=== PATIENT | female | born 1970 | race Caucasian/White ===

== ENCOUNTER → 2018-06-08 15:19 | Outpatient (CLI) | payer SELFPAY ==
--- NOTE | 2018-06-08 15:23 | MR_ITS ---
MR lumbar spine wo con, MR 3-d myelogram/MRCP HISTORY: Low back pain ITS.REASON: LUMBOSACRAL STRAIN ORDERING PHYSICIAN: Michael Romero PATIENT AGE: 48 years Comparison: None TECHNIQUE: Standard multiplanar multiecho sequences are performed without contrast. 3-D MIP and myelographic images are also rendered and reviewed FINDINGS: There is normal alignment. The spinal cord ends at the L1-L2 level. 311 T12, T12-L1, L1-L2, L2-L3, and L3-L4 have an unremarkable appearance. L4-5: There is a small annular fissure within a small central/left paracentral disc protrusion without impingement causing some mild left lateral recess narrowing. L5-S1: Mild bulging disc. No canal stenosis or extruded herniated disc is evident. IMPRESSION: 1. Small left paracentral disc protrusion at L4-L5. 2. Minimal bulging disc at L5-S1
== END ==
PROVIDERS: PCP Internal Medicine; Visit Provider Internal Medicine
DX: S39.012A Strain of muscle, fascia and tendon of lower back, initial encounter (principal)
CPT/HCPCS: 72148; 76376

== ENCOUNTER → 2018-08-17 14:18 | Outpatient (CLI) | payer SELFPAY ==
[2018-08-21 11:11] LABS: Neisseria gonorrhoeae, NAA Negative (Negative)
== END ==
PROVIDERS: Visit Provider Nurse Practitioner Obstetrics & Gynecology
DX: Z72.51 High risk heterosexual behavior (principal)
CPT/HCPCS: 87491; 87591

== ENCOUNTER → 2018-09-26 11:41 | Outpatient (CLI) | payer SELFPAY ==
--- NOTE | 2018-09-26 11:48 | XR_ITS ---
XR knee RT 3V HISTORY: ITS.REASON: RT KNEE PAIN ORDERING PHYSICIAN: Michael Romero PATIENT AGE: 48 years COMPARISON: 11/04/2008 FINDINGS: No fracture or dislocation. No lytic or blastic change. Normal mineralization. There are minimal osteoarthritic changes of the medial compartment. IMPRESSION: Minimal osteoarthritis of the medial compartment otherwise negative
== END ==
PROVIDERS: PCP Internal Medicine; Visit Provider Internal Medicine
DX: M25.561 Pain in right knee (principal)
CPT/HCPCS: 73562

== ENCOUNTER 2020-02-13 14:00 | Emergency (ER) | payer MEDICAID, SELFPAY ==
[2020-02-13 14:01] VITALS: BP 151/76; PULSE 73; RESP 18; TEMP 37.1; O2SAT 100; BMI 26.1
--- NOTE | 2020-02-13 14:18 | HMH.EDBACK ---
ED Disposition Clinical Impression: Lumbar pain Disposition: Home, Self-Care Condition on Discharge: Fair Instructions: DI for Low Back Pain Additional Instructions: Return to the emergency department for a loss of bowel or bladder control, worsening of symptoms, fever, motor or sensory changes in one or both of your legs, any other acute new concerns. Referrals: Siddhartha Kincaid [Referring] - 3 days - Critical Care Critical Care Time: No Attestation: On , the high probability of a clinically significant, sudden or life threatening deterioration of the following system(s) required my full and direct attention, intervention and personal management. The time I documented below is in addition to time spent performing reported procedures but includes the following listed in this critical care notation. Medical Decision Making - Medical Records Medical records reviewed: Yes: I reviewed the patient's medical records. - Sy Inquiry Pt receiving controlled substance: Yes Sy was queried for this patient: No Risks and benefits of using a controlled substance: were discussed with pt by me Vital Signs: 02/13/20 14:01 02/13/20 14:31 02/13/20 16:19 Temperature 98.7 F Temperature Source Oral Pulse Rate [Left Radial] 73 78 72 Respiratory Rate 18 18 20 Blood Pressure [Right Arm] 151/76 H 136/82 128/92 H Blood Pressure Mean [Right Arm] 101 100 104 Blood Pressure Source [Right Arm] Automatic Cuff Automatic Cuff Automatic Cuff Blood Pressure Position [Right Arm] Sitting Supine Sitting 02 Sat by Pulse Oximetry 100 100 100 Oxygen Delivery Method Room Air Room Air Orders (Tests/Meds): ED MEDICATIONS Discontinued Medications Generic Name Dose Route Start Last Admin Trade Name Moon PRN Reason Stop Dose Admin Diazepam 5 mg 02/13/20 14:18 02/13/20 15:23 Diazepam 5mg Tablet PO 02/13/20 14:19 5 mg ONCE ONE Administration Ketorolac Tromethamine 60 mg 02/13/20 14:18 02/13/20 15:23 Ketorolac 60mg/2ml Vial IM 02/13/20 14:19 60 mg ONCE ONE Administration Oxycodone/Acetaminophen 1 each 02/13/20 15:45 02/13/20 15:58 Oxycodone 10mg W/Apap 325mg Tablet PO 02/13/20 15:46 1 each ONCE ONE Administration Medical Decision Narrative: Patient with back pain, no neurovascular symptoms distally. She does not exhibit symptomology consistent with cauda equina. No blunt trauma that would prompt imaging. She experienced little relief of symptoms with Valium and Toradol, was given Percocet with slight improvement of pain. I have offered transport to follow-up with neurosurgery/Dr. Kincaid in [place] at [facility], but patient has declined and wants to go home. She will call their office tomorrow and follow-up outpatient. We discussed return precautions and patient was discharged home. Back Pain HPI - General Stated Complaint: AO [id number] back pain Time Seen by Provider: 02/13/20 14:18 Mode of Arrival: Wheelchair Source of Information: Patient Limitations: No Limitations - History of Present Illness HPI Narrative: This is a 49-year-old female who presents to the emergency department for back pain that started just prior to arrival. She has a known history of some slipped disks in her lower back and has had problems like this before where she has acute pain in her lower back that is worse with movement. She does not have any urinary symptoms and has otherwise been well. No loss of bowel or bladder control. 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 No radiation of the pain. No motor or sensory changes in her lower extremities. Any sort of movement makes the pain worse. She has seen Dr. Kincaid's office in [place] for these problems in the past with recommendation of no surgery until she develops a radiculopathy. - Related Data Previous Rx's Medication Instructions Recorded fluconazole 100 mg tablet
[2020-02-13 14:31] VITALS: BP 136/82; PULSE 78; RESP 18; O2SAT 100
[2020-02-13 16:19] VITALS: BP 128/92; PULSE 72; RESP 20; O2SAT 100
[2020-02-13 17:23] VITALS: BP 130/89; PULSE 86; RESP 20; TEMP 37.1; O2SAT 97
== END 2020-02-13 17:25 | disposition home or self-care (01) ==
PROVIDERS: Emergency Provider Emergency Medicine; PCP Internal Medicine
DX: M54.5 Low back pain (principal); K21.9 Gastro-esophageal reflux disease without esophagitis; M79.7 Fibromyalgia; Z90.710 Acquired absence of both cervix and uterus
CPT/HCPCS: 96372; 99282

== ENCOUNTER → 2022-08-19 10:45 | Outpatient (CLI) | payer SELFPAY ==
--- NOTE | 2022-08-19 10:51 | XR_ITS ---
FINAL REPORT CLINICAL HISTORY: rt knee pain FINDINGS: RIGHT KNEE SERIES Three views of the right knee were obtained. There is no acute fracture or dislocation. There is mild to moderate medial compartment joint space narrowing, which is likely due to osteoarthritis. There is no soft tissue abnormality. IMPRESSION: Osteoarthritis of the medial compartment. Reviewed, Interpreted and Dictated by Henrry Coronado MD Transcribed by Sharath Zuleta Authenticated and [facility]
== END ==
PROVIDERS: PCP Internal Medicine; Visit Provider Orthopaedic Surgery
DX: M25.561 Pain in right knee (principal)
CPT/HCPCS: 73562

== ENCOUNTER 2022-08-19 14:03 | Outpatient (RCR) | payer SELFPAY | END 2022-08-19 15:10 | disposition home or self-care (01) | LOC: PT 14:03 | PROVIDERS: Visit Provider Orthopaedic Surgery | DX: M25.561 Pain in right knee (principal) | CPT/HCPCS: 97760 ==

== ENCOUNTER → 2022-10-04 10:26 | Outpatient (CLI) | payer SELFPAY ==
--- NOTE | 2022-10-04 10:34 | ECG_ITS ---
APPROVED REPORT Exam: Resting ECG HR:70 bpm ECG Measurements Heart Rate 70 AXES AL 169 P 31 QRSd 94 QRS 64 QT 392 T 64 QTc 412 Conclusion SINUS RHYTHM LOW QRS VOLTAGE IN PRECORDIAL LEADS [QRS DEFLECTION < 1.0 mV IN CHEST LEADS] OTHERWISE A NORMAL ECG Electronically signed by : Michael Romero MD 10/07/2022 12:06:25
== END ==
PROVIDERS: PCP Internal Medicine; Visit Provider Internal Medicine
DX: Z01.810 Encounter for preprocedural cardiovascular examination (principal)
CPT/HCPCS: 93005

== ENCOUNTER → 2022-10-04 13:02 | Outpatient (CLI) | payer SELFPAY ==
[2022-10-04 14:56] LABS: Basophils # 0.1 K/mm3 (0-0.2); Basophils % 0.9 % (0.1-2.0); Eosinophils # 0.4 K/mm3 (0.0-0.4); Eosinophils % 5.7 % (0.1-12.0); Hematocrit 43.1 % (37.0-47.0); Hemoglobin 13.6 g/dL (12.2-16.2); Lymphocytes # 1.7 K/mm3 (0.7-4.5); Lymphocytes % 22.2 % (10-50); Mean Corpuscular HGB Conc 31.6 g/dL (31.8-35.4); Mean Corpuscular Volume 94.7 fl (81-99); Mean Platelet Volume 10.1 fl (7.4-10.4); Monocytes # 0.5 K/mm3 (0.1-1.0); Monocytes % 5.9 % (1.7-9.3); Neutrophils # 4.9 K/mm3 (1.8-7.8); Neutrophils % 65.3 % (37.0-80.0); Platelet Count 247 K/mm3 (142-424); Red Blood Count 4.55 M/mm3 (4.20-5.40); Red Cell Distribution Width 13.7 % (11.5-17.5); White Blood Count 7.6 K/mm3 (4.8-10.8)
[2022-10-04 16:47] LABS: Anion Gap 14.6 mEq/L (5-15); Blood Urea Nitrogen 10 mg/dl (7-17); Calcium 9.3 mg/dl (8.4-10.2); Carbon Dioxide 28 mmol/L (22.0-30.0); Chloride 103 mmol/L (98-107); Estimated Glomerular Filt Rate 88 ml/min (>60); GFR (African American) 106 ML/MIN (>60); Glucose 82 mg/dl (74-100); Potassium 4.6 mmoL/L (3.5-5.1); Sodium 141 mmol/L (136-145)
== END ==
PROVIDERS: PCP Internal Medicine; Visit Provider Internal Medicine
DX: Z01.818 Encounter for other preprocedural examination (principal); M17.11 Unilateral primary osteoarthritis, right knee
CPT/HCPCS: 80048; 83036; 85025

== ENCOUNTER 2022-10-21 14:00 | Outpatient (RCR) | payer SELFPAY ==
--- NOTE | 2022-10-14 11:23 | HMH.PTOPEV ---
PT Outpatient Evaluation Rehab PT Outpatient Evaluation Start: 10/14/22 08:07 Freq: Status: Active Protocol: Document 10/14/22 08:08 RALEIGH (Rec: 10/14/22 11:23 RALEIGH [id number]) E-signed By Lety Vargas, PT Outpatient Therapy Subjective History Subjective History Pt presents to the PT clinic s /p R TKA on 10/11/[address] Bertrand. Pt reports she was having difficulty walking, going up/down stairs and squatting. Pt reports she was pain and difficutly for ~ 2 months prior to having surgery . Pt reports Dr. Bertrand gave her 4-5 exercises to do at home and reports compliance with them at home. Pt reports that she has been sleeping on the couch since surgery because her bed is too far away. Pt reports that she is currently needing assistance to shower with a tub transfer bench. Pt reports that she has been staying with her daughter at home to assist with B/IADL's. Pt reports she is currently taking oxycodone and meloxicam for pain. Pt reports she has been using the game ready device at home for pain. PMH: migraines, fibromyalgia BP 124/82mmHg Educated pt on s/s of infection. Pt stated that she has been feeling lightheaded since surgery, educated pt to follow-up with Dr. Bertrand to address concerns. Chief Complaint Pain,Stiff,Swelling,Weakness Symptom Type Ache,Throb,Sharp,Burning Symptoms Relieved By Rest/Positioning,Ice, Prescription Meds,Elevation Symptoms Aggravated By Prone,Supine,Sitting,Standing, Bending/Stooping,Physical Activity,Twisting,Walking, Lifting Prior Functional Limitations Lifting,Housework,Standing, Sitting,Squatting,Recreation Activity,Stairs,Bending/ Stooping Current Functional Schmitt
== END 2022-10-21 14:05 | disposition home or self-care (01) ==
LOC: PT 14:00
PROVIDERS: Visit Provider Orthopaedic Surgery
DX: M25.561 Pain in right knee (principal); Z96.651 Presence of right artificial knee joint
CPT/HCPCS: 97163

== ENCOUNTER 2023-06-21 11:07 | Outpatient (CLI) | payer SELFPAY ==
--- NOTE | 2023-06-21 11:11 | XR_ITS ---
FINAL REPORT CLINICAL HISTORY: CHRONIC COUGH, 1 yr, c/o cp 2 days ago non smoker COMPARISON: None FINDINGS: The cardiac silhouette is normal. The mediastinal and hilar structures are unremarkable. The lungs are clear. There is no pneumothorax. IMPRESSION: No acute process. Reviewed, Interpreted and Dictated by Henrry Coronado MD Transcribed by HOSSEIN Pardo Authenticated and . [facility]
== END 2023-06-21 23:59 | disposition home or self-care (01) ==
LOC: RAD 11:08
PROVIDERS: PCP Internal Medicine; Visit Provider Internal Medicine
DX: R05.3 Chronic cough (principal)
CPT/HCPCS: 71046

== ENCOUNTER 2023-06-26 21:17 | Emergency (ER) | payer SELFPAY ==
[2023-06-26 21:19] VITALS: BP 152/78; PULSE 83; RESP 16; TEMP 37.2; O2SAT 100; BMI 27.9
[2023-06-26 21:28] VITALS: BMI 27.9
[2023-06-26 21:33] LABS: Coronavirus 19, PCR Not Detected (NotDetected); Influenza A, PCR Not Detected (NotDetected); Influenza B, PCR Not Detected (NotDetected)
[2023-06-26 22:11] LABS: Strep Scrn Group A (Rapid) Negative (Negative)
--- NOTE | 2023-06-26 22:14 | XR_ITS ---
PROCEDURE INFORMATION: Exam: XR Chest Exam date and time: 06/26/2023 10:15 PM Age: 53 years old Clinical indication: Other: Congestion TECHNIQUE: Imaging protocol: Radiologic exam of the chest. Views: 2 views. COMPARISON: CR XR CHEST 2V 06/21/2023 11:24 AM FINDINGS: Lungs: Right upper lung ground-glass opacity. Pleural spaces: Normal. No pleural effusion. No pneumothorax. Heart/Mediastinum: Normal. No cardiomegaly. Bones/joints: Unremarkable. IMPRESSION: Right upper lung ground-glass opacity is suspicious for pneumonia.
--- NOTE | 2023-06-26 22:19 | PC.NURSE ---
patient given blanket and drink
--- NOTE | 2023-06-26 22:45 | ED_ITS ---
Discharge Plan Disposition Patient Disposition: Home, Self-Care Condition: Good Prescriptions Prescriptions: New pantoprazole [Protonix] 40 mg tablet,delayed release (DR/EC) 40 mg PO BID 14 Days Qty: 28 0RF prednisone 50 mg tablet 50 mg PO DAILY 5 Days Qty: 5 0RF No Action esomeprazole magnesium [Nexium] 20 mg capsule,delayed release(DR/EC) 20 mg PO DAILY Referrals Follow up/Referrals: Michael Romero MD [Primary Care Provider] - See instructions Carolina Gates MD [Physician] - See instructions Activity Restrictions/Add. Instructions Additional Instructions/Restrictions: Follow-up closely with your PCP. Return to the ER as needed for any worsening signs or symptoms as needed. Clinical Impressions Clinical Impression: Chronic cough Discharge ED Provider: Rod Fairchild Adult HPI <HOSSEIN Brannon - Last Filed: 06/26/23 23:11> General Chief complaint: Upper Respiratory Infection Stated complaint: Cough,ALBERT,body aches Time Seen by Provider: 06/26/23 22:45 Mode of Arrival: Ambulatory Source of Information: Patient Limitations: No Limitations Description of Symptoms (Recalled from ER Triage Doc. by RN): pt c/o cough, congestion,fever,body aches sonce the . pt was diagnosed bronchitis and started on amoxicillin History of Present Illness HPI narrative: Patient presents with a 2-month history of persistent pervasive cough. She has had some workup ordered by her PCP but has yet to see a product merchandiser. Patient reports that she has had worsening over the last 48 hours have difficulty sleeping because the cough is so pervasive. He denies chest pain fever chills hemoptysis hematochezia melena nausea vomit diarrhea. Patient is a non-smoker. There is no precipitating illness prior to the cough presenting. Related Data Home Medications Medication Instructions Recorded Confirmed esomeprazole magnesium 20 mg 20 mg PO DAILY 08/19/22 06/14/23 capsule,delayed release (Nexium) Previous Rx's Medication Instructions Recorded pantoprazole 40 mg tablet,delayed 40 mg PO BID 14 days #28 tabs 06/26/23 release (Protonix) prednisone 50 mg tablet 50 mg PO DAILY 5 days #5 tabs 06/26/23 Allergies Allergy/AdvReac Type Severity Reaction Status Date / Time No Known Allergies Allergy Verified 06/14/23 09:38 PFS <HOSSEIN Brannon - Last Filed: 06/26/23 23:11> [facility] Disclaimer: The information contained in this section may have been updated after the patient was seen, as this information can be updated by other users. Medical History (Updated 06/26/23 @ 22:56 by HOSSEIN Brannon) Menopausal symptoms Fibromyalgia Depression Surgical History (Updated 06/14/23 @ 09:47 by Bibiana Yarbrough) Hx of right knee surgery H/O arthroscopy of hip H/O tubal ligation H/O total hysterectomy Family History (Updated 06/14/23 @ 09:47 by Bibiana Yarbrough) Grandmother Cancer Mother Cancer Social History Smoking Status: Never smoker alcohol intake: never substance use type: denies use current occupational status: employed Travel in the last 8 weeks: None household members: family housing: house <HOSSEIN Brannon - Last Filed: 06/26/23 23:11> ROS Obtained: Yes Systems reviewed as appropriate & no additional complaints except as documented Physical Exam <HOSSEIN Brannon - Last Filed: 06/26/23 23:11> General General appearance: alert and in no apparent distress Head Head exam: atraumatic and normal inspection Eye Eye exam: Present normal appearance, PERRL and EOMI ENT ENT exam: Present normal exam, normal oropharynx and mucous membranes moist Neck Neck exam: Present normal inspection, full ROM and trachea midline; Absent lymphadenopathy Chest Chest inspection: Present normal inspection and symmetric chest wall rise Respiratory Respiratory exam: Present normal lung sounds bilaterally; Absent accessory muscle use Cardiovascular Cardiovascular exam: Present regular rate, normal rhythm, normal heart sounds, +S1 and +S2 Abdominal Exam Abdominal exam: Present soft and normal bowel sounds; Absent tenderness, guarding or rebound Extremities Exam Extremities exam: Present normal inspection and full ROM Neurological Exam Neurological exam: Present alert, oriented X3 and CN II-XII intact Psychiatric Psychiatric exam: Present normal affect and normal mood Skin Skin exam: Present warm, dry and normal color Lymphatic Lymphatic Findings: no adenopathy Medical Decision Making <HOSSEIN Brannon - Last Filed: 06/26/23 23:11> Medical Records Medical records reviewed: Yes I reviewed the patient's medical records. Sy Inquiry Pt receiving controlled substance: No Vital Signs: 06/26/23 21:19 06/26/23 23:17 Temperature 98.9 F 98.0 F Temperature Source Oral Pulse Rate 85 Pulse Rate [Right] 83 Respiratory Rate 16 20 Blood Pressure 140/87 Blood Pressure [Right Arm] 152/78 H Blood Pressure Mean [Right Arm] 102 02 Sat by Pulse Oximetry 100 Oxygen Delivery Method Room Air Lab Data Lab Results 06/26/23 21:25: SARS-CoV-2 (PCR) Not detected, Influenza A Untype (PCR) Not detected, Influenza Type B (PCR) Not detected, Group A Strep Rapid Negative Orders (Tests/Meds): ED MEDICATIONS Discontinued Medications Generic Name Dose Route Start Last Admin Trade Name Freq PRN Reason Stop Dose Admin Promethazine HCl/Codeine 5 ml 06/26/23 23:14 06/26/23 23:15 Promethazine W/Codeine 6.25mg/10mg 5ml Udc PO 06/26/23 23:15 5 ml ONCE ONE Administration Promethazine/Phenylephrine/Codeine 5 ml 06/26/23 23:06 06/26/23 23:17 Promethazine Vc W/Codeine 5ml Udc PO 06/26/23 23:07 Not Given ONCE ONE ORDERS Category Date Time Status Chest XR 2 view (NOT portable) [XR chest 2V] Stat Exams 06/26/23 22:14 Completed Rapid PCR Covid and Flu A/B Stat Lab 06/26/23 21:25 Completed Rapid Strep Scrn Group A [Strep Scrn Group A (Rapid)] Lab 06/26/23 21:25 Completed Stat Strep Screen Confirmation Stat Micro 06/26/23 21:25 Received Medical Decision Narrative: In summary patient is a 53-year-old female who presents to the emergency department for evaluation of 2-month history of cough. Patient is hemodynamically stable upon arrival, afebrile. Zickel exam is remarkable for a persistent interruptive dry nonproductive cough present on exam. However her breath sounds are clear and equal bilaterally to the bases without adventitious sounds of any kind.. Differential diagnosis includes gastroesophageal reflux disease versus bronchiolitis versus asthma versus COPD versus interstitial lung disease versus bacterial viral infection etc. Initial workup will be conducted with plain film chest x-ray labs and swabs. Initial interventions include antitussives. Initial workup reviewed by me shows that her hematologic labs are nonactionable, her swabs are negative, and her plain film chest x-ray shows no acute disease per my informal interpretation.. Upon repeat evaluation her active discussion with the workup that might be required for the patient given the 2-month history of her cough and the nonacute nature. Patient verbalized understanding.. Given this patient is appropriate for discharge with a prescription for p.o. steroids and a proton pump inhibitor. I have referred her to pulmonology. <Rod Fairchild, DO - Last Filed: 06/27/23 00:14> Vital Signs: 06/26/23 21:19 06/26/23 23:17 Temperature 98.9 F 98.0 F Temperature Source Oral Pulse Rate 85 Pulse Rate [Right] 83 Respiratory Rate 16 20 Blood Pressure 140/87 Blood Pressure [Right Arm] 152/78 H Blood Pressure Mean [Right Arm] 102 02 Sat by Pulse Oximetry 100 Oxygen Delivery Method Room Air Lab Data Lab Results 06/26/23 21:25: SARS-CoV-2 (PCR) Not detected, Influenza A Untype (PCR) Not detected, Influenza Type B (PCR) Not detected, Group A Strep Rapid Negative Orders (Tests/Meds): ED MEDICATIONS Discontinued Medications Generic Name Dose Route Start Last Admin Trade Name Moon PRN Reason Stop Dose Admin Promethazine HCl/Codeine 5 ml 06/26/23 23:14 06/26/23 23:15 Promethazine W/Codeine 6.25mg/10mg 5ml Udc PO 06/26/23 23:15 5 ml ONCE ONE Administration Promethazine/Phenylephrine/Codeine 5 ml 06/26/23 23:06 06/26/23 23:17 Promethazine Vc W/Codeine 5ml Udc PO 06/26/23 23:07 Not Given ONCE ONE ORDERS Category Date Time Status Chest XR 2 view (NOT portable) [XR chest 2V] Stat Exams 06/26/23 22:14 Completed Rapid PCR Covid and Flu A/B Stat Lab 06/26/23 21:25 Completed Rapid Strep Scrn Group A [Strep Scrn Group A (Rapid)] Lab 06/26/23 21:25 Completed Stat Strep Screen Confirmation Stat Micro 06/26/23 21:25 Received Medical Decision Narrative: In summary patient is a 53-year-old female who presents to the emergency department for evaluation of 2-month history of cough. Patient is hemodynamically stable upon arrival, afebrile. Zickel exam is remarkable for a persistent interruptive dry nonproductive cough present on exam. However her breath sounds are clear and equal bilaterally to the bases without adventitious sounds of any kind.. Differential diagnosis includes gastroesophageal reflux disease versus bronchiolitis versus asthma versus COPD versus interstitial lung disease versus bacterial viral infection etc. Initial workup will be conducted with plain film chest x-ray labs and swabs. Initial interventions include antitussives. Initial workup reviewed by me shows that her hematologic labs are nonactionable, her swabs are negative, and her plain film chest x-ray shows no acute disease per my informal interpretation.. Upon repeat evaluation her active discussion with the workup that might be required for the patient given the 2-month history of her cough and the nonacute nature. Patient verbalized understanding.. Given this patient is appropriate for discharge with a prescription for p.o. steroids and a proton pump inhibitor. I have referred her to pulmonology. I was consulted by the JAKE, and we discussed the complexity of the problems being addressed. I approved the treatment and management plan for this patient's care in the Emergency Department, thus performing a substantive portion of the medical decision making. Rod Fairchild, DO Critical Care <HOSSEIN Brannon - Last Filed: 06/26/23 23:11> Critical Care Time Critical Care Time: No
[2023-06-26] MEDS: PROMETHAZINE W/CODEINE 6.25MG/10MG 5ML UDC 5 ML PO (23:15)
[2023-06-26 23:17] VITALS: BP 140/87; PULSE 85; RESP 20; TEMP 36.7; O2SAT 99
== END 2023-06-26 23:19 | disposition home or self-care (01) ==
PROVIDERS: Emergency Provider Emergency Medicine; PCP Internal Medicine
DX: R05.3 Chronic cough (principal)
CPT/HCPCS: 71046; 87430; 87636; 99283

== ENCOUNTER 2024-07-11 16:31 | Observation (INO) | payer SELFPAY ==
[2024-07-11 16:34] VITALS: BP 133/76; PULSE 71; RESP 18; TEMP 36.8; O2SAT 100; BMI 26.4
[2024-07-11 17:07] LABS: Basophils % 0.5 % (0.1-2.0); Eosinophils # 0.3 Kmm3 (0.0-0.4); Hematocrit 39.9 % (37.0-47.0); Hemoglobin 13.2 g/dL (12.2-16.2); Immature Granulocytes # 0.02 10^3uL; Immature Granulocytes % 0.3 %; Lymphocytes # 2.3 K/mm3 (0.7-4.5); Mean Corpuscular HGB Conc 33.1 g/dL (31.8-35.4); Mean Corpuscular Hemoglobin 30.3 pg (27.0-31.2); Mean Corpuscular Volume 91.7 fl (81-99); Monocytes # 0.6 K/mm3 (0.1-1.0); Monocytes % 7.8 % (1.7-9.3); Neutrophils # 4.7 K/mm3 (1.8-7.8); Neutrophils % 58.4 % (37.0-80.0); Nucleated Red Blood Cells # 0 10^3/uL; Nucleated Red Blood Cells % 0 %; Platelet Count 249 K/mm3 (142-424); Red Blood Count 4.35 M/mm3 (4.20-5.40); Red Cell Distribution Width 13.2 % (11.5-17.5); Red Cell Distribution Width-SD 43.9 fL
[2024-07-11 17:27] VITALS: BP 120/70; PULSE 66; O2SAT 99
--- NOTE | 2024-07-11 17:27 | CT_ITS ---
PROCEDURE INFORMATION: Exam: CT Abdomen And Pelvis With Contrast Exam date and time: 07/11/2024 5:44 PM Age: 54 years old Clinical indication: Abdominal pain; PT states sent from pcp for possible appendicitis; Additional info: Upper abd pain TECHNIQUE: Imaging protocol: Computed tomography of the abdomen and pelvis with contrast. Radiation optimization: All CT scans at this facility use at least one of these dose optimization techniques: automated exposure control; mA and/or kV adjustment per patient size (includes targeted exams where dose is matched to clinical indication); or iterative reconstruction. Contrast material: ISOVUE; Contrast volume: 75 ml; Contrast route: IV; COMPARISON: MR - SPLUMBWO MR lumbar spine wo con 06/08/2018 3:41 PM FINDINGS: Lungs: Visualized lung bases are clear. Heart: Heart size normal. Esophagus: The visualized distal esophagus is largely contracted without gross abnormality. Diaphragm: Small fatty hernia at the esophageal diaphragmatic hiatus. No features of strangulation. Liver: Normal contour. No mass lesions. Slight intrahepatic biliary ductal dilatation. Gallbladder and biliary ducts: Gallbladder is unremarkable. Dilated common hepatic duct and common bile duct, with common bile duct measuring 9.5 mm diameter. No calcified duct stones or obstructive mass lesions are evident by CT. Clinical/laboratory correlation recommended regarding evidence of biliary obstruction. Consider sonographic assessment as clinically indicated. Pancreas: Normal. No inflammatory changes or ductal dilation. Spleen: Granulomatous calcification in the spleen. Spleen is otherwise unremarkable. Adrenal glands: Normal. No adrenal mass. Kidneys and ureters: No acute abnormalities. No hydronephrosis or hydroureter. No urinary tract stones are identified. Stomach and bowel: The stomach is largely contracted. The small bowel is nondilated with no gross abnormality. Mild colonic diverticulosis, mostly proximal in distribution, with an inflamed thick-walled diverticulum along the posterior wall of the proximal transverse colon consistent with acute diverticulitis. No perforation or abscess. Appendix: The appendix is normal in caliber and demonstrates no evidence of appendicitis. Intraperitoneal space: No peritoneal free fluid or air. Vasculature: No acute vascular abnormalities. Lymph nodes: No adenopathy. Urinary bladder: Unremarkable as visualized. Reproductive: Prior hysterectomy. Bones/joints: No acute osseous abnormalities. Mild thoracolumbar spondylosis. Soft tissues: No acute soft tissue abnormalities. Very small fatty umbilical hernia . No evidence of associated bowel herniation or strangulation. IMPRESSION: 1. Acute diverticulitis in the proximal transverse colon with no evidence of perforation or abscess. 2. Dilated extrahepatic bile ducts with common bile duct measuring 9.5 mm diameter. Clinical/laboratory correlation recommended regarding evidence of biliary obstruction. Consider sonographic assessment as clinically indicated. 3. Additional nonemergent findings detailed above.
[2024-07-11 17:31] LABS: Alanine Aminotransferase 26 U/L (12-78); Albumin Level 4.4 g/dl (3.5-5.0); Albumin/Globulin Ratio 1.7 (1.1-1.8); Alkaline Phosphatase 76 U/L (38-126); Anion Gap 9.6 mEq/L (5-15); Aspartate Amino Transferase 30 U/L (14-36); Bilirubin,Total 0.7 mg/dl (0.2-1.3); Blood Urea Nitrogen 11 mg/dl (7-17); Calcium 9.2 mg/dl (8.4-10.2); Carbon Dioxide 26 mmol/L (22.0-30.0); Chloride 105 mmol/L (98-107); Creatinine Clearance Estimated 108 mL/min (50-200); Estimated Glomerular Filt Rate 87 ml/min (>60); GFR (African American) 106 ML/MIN (>60); Globulin 2.6 g/dL (1.3-3.2); Glucose 114 mg/dl (74-100); Lipase 84 U/L (23-300); Potassium 3.6 mmoL/L (3.5-5.1); Sodium 137 mmol/L (136-145)
--- NOTE | 2024-07-11 17:32 | ED_ITS ---
Discharge Plan Disposition Patient Disposition: Admitted Condition: Good Clinical Impressions Clinical Impression: Diverticulitis large intestine, Intractable abdominal pain Discharge ED Provider: Bianca Pop General Adult HPI General Chief complaint: Abdominal Pain Stated complaint: sent by Doctor Nickabdominal pain Time Seen by Provider: 07/11/24 16:51 Mode of Arrival: Ambulatory Source of Information: Patient Description of Symptoms (Recalled from ER Triage Doc. by RN): Pt was sent from Dr. Romero' office for evaluation of possible appendicitis. Pt states she has mid abdominal pain for several weeks but became worse yesterday. Pt states she is now having pain in the RLQ. History of Present Illness HPI narrative: This patient is a 54-year-old female with a history of fibromyalgia, depression, prior hysterectomy, prior tubal ligation, and GERD on Nexium presenting to the emergency department for evaluation concern for upper abdominal pain. Patient states she has had abdominal pain all across her upper abdomen for 2 days. She is also had nausea without any appetite, inability to tolerate oral intake. She has had no vomiting, but the nausea is severe. She denies any changes in bowel movements. She states she is having some discomfort with urination today, but she thinks that is because she is not been drinking. No fevers, chest pain, shortness of breath, cough, or other concerns. Related Data Home Medications ?Medication ?Instructions ?Recorded ?Confirmed esomeprazole magnesium 20 mg 20 mg PO DAILY 08/19/22 07/11/24 capsule,delayed release (Nexium) Previous Rx's ?Medication ?Instructions ?Recorded cyclobenzaprine 5 mg tablet 5 mg PO TID PRN muscle spasm #30 06/05/24 tabs valacyclovir 1 gram tablet 1,000 mg PO BID #60 tabs 06/05/24 (Valtrex) fluconazole 150 mg tablet 150 mg PO Q3D 2 doses #2 tabs 06/15/24 estradiol 1 mg tablet 1 mg PO DAILY #90 tabs 07/03/24 Allergies Allergy/AdvReac Type Severity Reaction Status Date / Time Opioids - Morphine Analogues AdvReac Mild vomiting Verified 07/11/24 15:56 [facility] Disclaimer: The information contained in this section may have been updated after the patient was seen, as this information can be updated by other users. Medical History Menopausal symptoms Fibromyalgia Depression Surgical History Hx of right knee surgery H/O arthroscopy of hip H/O tubal ligation H/O total hysterectomy Family History Grandmother Cancer Mother Cancer Social History Smoking Status: Never smoker alcohol intake: never substance use type: denies use current occupational status: employed Travel in the last 8 weeks?: None household members: family housing: house Have you lived/traveled outside US in past 30 days?: No Contact w/someone who lives/traveled outside US past 30 days?: No Exposure to someone with infectious disease in past 14 days?: No Do you have a fever (greater than 100.4 F or 38 C)?: No Have you tested positive for COVID-19?: No Exposed to someone with COVID-19 in past 14 days?: No Do you have a sore throat?: No Do you have a cough?: No Do you have any weakness?: No Do you have any diarrhea?: No Are you experiencing any unusual bleeding?: No Do you have any muscle aches/pain?: No Do you have any abdominal pain?: No Are you experiencing loss of taste or smell?: No Other Medical History Have you received the Flu Vaccine for this season: No Have you received the Pneumonia Vaccine: No ROS Obtained: Yes All systems reviewed & no additional complaints except as documented Physical Exam General General appearance: alert Comment: Uncomfortable appearing Head Head exam: atraumatic and normocephalic Eye Eye exam: Present normal appearance, PERRL and EOMI ENT ENT exam: Present normal exam, normal oropharynx, mucous membranes moist and normal external ear exam Neck Neck exam: Present normal inspection, full ROM and trachea midline; Absent tenderness Chest Chest inspection: Present normal inspection and symmetric chest wall rise; Absent tenderness Respiratory Respiratory exam: Present normal lung sounds bilaterally; Absent respiratory distress, wheezes, stridor or accessory muscle use Cardiovascular Cardiovascular exam: Present regular rate and normal rhythm Abdominal Exam Abdominal exam: Present distention (mild) and tenderness (epigastric); Absent guarding, rebound or rigidity Extremities Exam Extremities exam: Present normal inspection, full ROM and normal capillary refill; Absent tenderness or edema Back Exam Back exam: Present normal inspection and full ROM; Absent tenderness Neurological Exam Neurological exam: Present alert, oriented X3, CN II-XII intact and normal gait; Absent motor sensory deficit Psychiatric Psychiatric exam: Present normal affect and normal mood Skin Skin exam: Present warm and dry Medical Decision Making Medical Records Medical records reviewed: Yes I reviewed the patient's medical records. Screening: Per USPSTF and CDC recommendations, given the prevalence of disease in our region, it is our hospital?s policy to screen for HIV and viral Hepatitis for all patients aged 18 and over and those with ongoing risk factors. Sy Inquiry Pt receiving controlled substance: No Vital Signs: 07/11/24 16:34 07/11/24 17:27 07/11/24 18:00 Temperature 98.3 F Temperature Source Oral Pulse Rate 66 63 Pulse Rate [Right] 71 Respiratory Rate 18 Blood Pressure 120/70 125/73 Blood Pressure [Right Arm] 133/76 Blood Pressure Mean [Right Arm] 95 Blood Pressure Source Automatic Cuff Blood Pressure Source [Right Arm] Automatic Cuff Blood Pressure Position [Right Arm] Sitting 02 Sat by Pulse Oximetry 100 99 100 Oxygen Delivery Method Room Air Room Air Room Air 07/11/24 19:51 07/11/24 20:50 Temperature 98.3 F Temperature Source Oral Pulse Rate 52 L Pulse Rate [Right] Respiratory Rate 18 Blood Pressure 127/71 Blood Pressure [Right Arm] Blood Pressure Mean [Right Arm] Blood Pressure Source Manual Cuff/ Doppler Blood Pressure Source [Right Arm] Blood Pressure Position [Right Arm] 02 Sat by Pulse Oximetry Oxygen Delivery Method Room Air Room Air Lab Data Lab results reviewed: Yes I reviewed the patient's lab results. Lab Results 07/11/24 16:57: WBC 8.0, RBC 4.35, Hgb 13.2, Hct 39.9, MCV 91.7, MCH 30.3, MCHC 33.1, RDW 13.2, Plt Count 249, MPV 11.0 H, Neut % (Auto) 58.4, Lymph % (Auto) 29.0, [place] % (Auto) 7.8, Eos % (Auto) 4.0, Baso % (Auto) 0.5, Neut # (Auto) 4.7, Lymph # (Auto) 2.3, [place] # (Auto) 0.6, Eos # (Auto) 0.3, Baso # (Auto) 0.0, Sodium 137, Potassium 3.6, Chloride 105, Carbon Dioxide 26, Anion Gap 9.6, BUN 11, Creatinine 0.70, Estimated Creat Clear 108, Estimated GFR 87, Est GFR ( Amer) 106, Glucose 114 H, Calcium 9.2, Total Bilirubin 0.7, AST 30, ALT 26, Alkaline Phosphatase 76, Troponin I < 0.01, Total Protein 7.0, Albumin 4.4, Globulin 2.6, Albumin/Globulin Ratio 1.7, Lipase 84, Urine Color Yellow, Urine Appearance Cloudy, Urine pH 6.0, Ur Specific [place] >= 1.030, Urine Protein Negative, Urine Glucose (UA) Negative, Urine Ketones 2+, Urine Blood Trace-i, Urine Nitrate Negative, Urine Bilirubin Negative, Urine Urobilinogen 0.2, Ur Leukocyte Esterase Negative, Urine RBC 3-5, Urine WBC 3-5, Ur Squamous Epith Cells 20-50, Urine Bacteria 4+, Urine Mucus 4+ 07/11/24 16:57 07/11/24 16:57 Orders (Tests/Meds): ED MEDICATIONS Generic Name Dose Route Start Last Admin Trade Name Freq PRN Reason Stop Dose Admin Hydromorphone HCl 0.5 mg 07/11/24 20:32 Hydromorphone 2mg/Ml Syringe IV 08/10/24 20:31 Q3HP PRN Severe Pain (7-10) Sodium Chloride 1,000 mls @ 100 mls/hr 07/11/24 20:45 07/11/24 21:18 Sod Chlor 0.9% 1000ml Bag IV 08/10/24 20:44 100 mls/hr .Q10H SARIAH Administration Ceftriaxone Sodium 2 gm/ 100 mls @ 200 mls/hr 07/12/24 21:30 Sodium Chloride IV 07/22/24 21:29 Q24H SARIAH Metronidazole 500 mg in 100 mls @ 100 mls/hr 07/12/24 08:00 Flagyl 500mg/100ml Ivpb IV 07/22/24 07:59 Q12H SARIAH Ondansetron HCl 4 mg 07/11/24 21:23 Ondansetron 4mg/2ml Vial IV 08/10/24 21:22 Q6HP PRN Nausea Sodium Chloride 8 ml 07/11/24 17:27 Sodium Chloride 0.9% 10ml Vial IV 08/10/24 17:26 NEEDED PRN dilute pepcid Sodium Chloride 10 ml 07/11/24 20:32 Sodium Chloride 0.9% 10ml Flush Syringe IV 08/10/24 20:31 NEEDED PRN Maintain IV Site Discontinued Medications Generic Name Dose Route Start Last Admin Trade Name [place] PRN Reason Stop Dose Admin Acetaminophen 1,000 mg 07/11/24 17:27 07/11/24 17:36 Acetaminophen 1,000mg/100ml Vial IV 07/11/24 17:28 1,000 mg ONCE ONE Administration Dicyclomine HCl 20 mg 07/11/24 18:46 07/11/24 19:18 Dicyclomine 10mg Capsule PO 07/11/24 18:47 20 mg ONCE ONE Administration Famotidine 20 mg 07/11/24 17:27 07/11/24 17:36 Famotidine 20mg/2ml Vial IV 07/11/24 17:28 20 mg ONCE ONE Administration Hydromorphone HCl 0.5 mg 07/11/24 19:38 07/11/24 19:49 Hydromorphone 2mg/Ml Syringe IV 07/11/24 19:39 0.5 mg ONCE ONE Administration Lactated Ringer's 1,000 mls @ 999 mls/hr 07/11/24 17:27 07/11/24 17:37 Lactated Ringer's 1000 Ml Bag IV 07/11/24 18:27 999 mls/hr .Q1H1M ONE Administration Ceftriaxone Sodium 1 gm/ 100 mls @ 200 mls/hr 07/11/24 19:39 07/11/24 19:48 Sodium Chloride IV 07/11/24 20:08 200 mls/hr ONCE ONE Administration Metronidazole 500 mg in 100 mls @ 100 mls/hr 07/11/24 19:38 07/11/24 19:48 Flagyl 500mg/100ml Ivpb IV 07/11/24 20:37 100 mls/hr ONCE ONE Administration Iopamidol 75 ml 07/11/24 17:49 07/11/24 17:50 Iopamidol-370 (76%);100ml Bottle IV 07/11/24 17:50 75 ml ONCE ONE Administration Ketorolac Tromethamine 15 mg 07/11/24 17:27 07/11/24 17:37 Ketorolac 30mg/Ml Vial IV 07/11/24 17:28 15 mg ONCE ONE Administration Morphine Sulfate 4 mg 07/11/24 18:20 07/11/24 18:35 Morphine 4mg/Ml Syringe IV 07/11/24 18:21 4 mg ONCE ONE Administration Ondansetron HCl 4 mg 07/11/24 17:24 07/11/24 17:36 Ondansetron 4mg/2ml Vial IV 07/11/24 17:25 4 mg ONCE ONE Administration Oxycodone HCl 5 mg 07/11/24 18:47 07/11/24 19:18 Oxycodone 5mg Immediate Release Tablet PO 07/11/24 18:48 5 mg ONCE ONE Administration Sodium Chloride 10 ml 07/11/24 17:49 07/11/24 17:50 Sodium Chloride 0.9% 10ml Syr (Rad Only) IV 07/11/24 17:50 10 ml ONCE ONE Administration ORDERS Category Date Time Status CT abdomen pelvis w con Stat Cat Scan 07/11/24 17:27 Completed Basic Metabolic Panel AMLAB Lab 07/12/24 06:00 Ordered Complete Blood Count Auto Diff AMLAB Lab 07/12/24 06:00 Ordered Complete Blood Count Auto Diff Stat Lab 07/11/24 16:57 Completed Comprehensive Metabolic Panel Stat Lab 07/11/24 16:57 Completed Lipase Stat Lab 07/11/24 16:57 Completed Magnesium AMLAB Lab 07/12/24 06:00 Ordered Trop I [Troponin I] Stat Lab 07/11/24 16:57 Completed Troponin I Q3H Lab 07/11/24 21:41 Completed Troponin I Q3H Lab 07/11/24 23:45 Ordered Urinalysis and Microscopic Stat Lab 07/11/24 16:57 Completed Blood Culture Stat Micro 07/11/24 20:26 Received Urine Culture Stat Micro 07/11/24 16:57 Received ECG Data Tracing #1: I reviewed this ECG and interpreted as documented below: Normal sinus rhythm with sinus arrhythmia with a ventricular to [address] changes concerning for ischemia. Normal intervals ECG initial impression date: 07/11/24 ECG initial impression time: 17:54 Medical Decision Narrative: In summary, this patient is a 54-year-old presenting to the Emergency Department for evaluation of epigastric/upper abdominal pain, nausea, poor appetite. Differential diagnoses considered include but are not limited to pancreatitis, cholecystitis, peptic ulcer disease, duodenitis, gastritis, ACS, bowel obstruction. Ruling out the most morbid conditions drove assessment. I reviewed patient's past medical records and noted evaluation by PCP today for similar symptoms with transfer to the ED for further evaluation and management. On exam, the patient is uncomfortable appearing with upper abdominal/epigastric tenderness. No rebound or guarding. Vitals are reassuring on cardiac telemetry. workup included CBC, CMP, lipase, urinalysis, CT abdomen pelvis with IV contrast as well as troponin and EKG for cardiac workup to be on the safe side. EKG obtained is reassuring. Patient was given a bolus of IV fluids as well as IV morphine, Zofran, Toradol, Pepcid, acetaminophen for symptomatic improvement. I independently interpreted CT scan prior to the radiologist read and noted transverse diverticulitis. Please see their read for final interpretation. Labs were obtained that demonstrated reassuring CBC with no significant leukocytosis, reassuring chemistry with nonactionable. Urinalysis is grossly contaminated squamous cells but is not overtly concerning for infection. On reassessment, patient had no improvement after administration of interventions above. She was given oral oxycodone and Bentyl with continued lack of improvement. She continued to have severe pain, so I did give a dose of IV Dilaudid. I discussed with her going home for supportive management of diverticulitis versus admission given her intractable pain, and she prefers admission. I started the patient on IV Rocephin and Flagyl. I had an indirect discussion with the hospitalist who admitted her in stable condition Critical Care Critical Care Time Critical Care Time: No
[2024-07-11] MEDS: ACETAMINOPHEN 1,000MG/100ML VIAL 1000 MG IV (17:36)
[2024-07-11] MEDS: FAMOTIDINE 20MG/2ML VIAL 20 MG IV (17:36)
[2024-07-11] MEDS: ONDANSETRON 4MG/2ML VIAL 4 MG IV (17:36)
[2024-07-11] MEDS: KETOROLAC 30MG/ML VIAL 15 MG IV (17:37)
[2024-07-11] MEDS: LACTATED RINGERS 1000ML 1,000 ML 999 ML IV (17:37)
[2024-07-11] MEDS: IOPAMIDOL-370 (76%);100ML BOTTLE 75 ML IV (17:50)
[2024-07-11] MEDS: SODIUM CHLORIDE 0.9% 10ML SYR (RAD ONLY) 10 ML IV (17:50)
--- NOTE | 2024-07-11 17:53 | ECG_ITS ---
APPROVED REPORT Exam: Resting ECG HR:60 bpm ECG Measurements Heart Rate 60 AXES MO 195 P 25 QRSd 86 QRS 20 QT 439 T 47 QTc 440 Conclusion SINUS RHYTHM WITH SINUS ARRHYTHMIA LOW QRS VOLTAGE IN PRECORDIAL LEADS [QRS DEFLECTION < 1.0 mV IN CHEST LEADS] No STEMI Electronically signed by : JOSÉ MIGUEL HIDALGO, 07/12/2024 23:38:48
[2024-07-11 18:00] VITALS: BP 125/73; PULSE 63; O2SAT 100
[2024-07-11 18:15] LABS: Microscopic, Urine URINE MICROSCOPIC (MICROSCOPIC)
[2024-07-11 18:17] LABS: Appearance,Urine CLOUDY (Clear); Blood, Urine TRACE-I (Negative); Color,Urine YELLOW (Yellow); Glucose,Urine (UA) Negative (Negative); Ketones,Urine 2+ (Negative); Leukocyte Esterase,Urine Negative (Negative); Nitrate,Urine Negative (Negative); Protein,Urine Negative (Negative); Specific Gravity, Urine >= 1.030 (1.005-1.030); Urobilinogen,Urine 0.2 EU/dl (0.2)
[2024-07-11 18:19] LABS: Troponin I < 0.01 ng/ml (0.00-0.034)
[2024-07-11 18:24] LABS: Bilirubin,Urine Negative (Negative)
[2024-07-11] MEDS: MORPHINE 4MG/ML SYRINGE 4 MG IV (18:35)
[2024-07-11 18:47] LABS: Squamous Epithelial Cell,Urine 20-50 #/hpf (0-5)
[2024-07-11 18:48] LABS: Bacteria,Urine 4+ /lpf; Mucus,Urine 4+ /lpf
[2024-07-11] MEDS: OXYCODONE 5MG IMMEDIATE RELEASE TABLET 5 MG PO (19:18)
[2024-07-11] MEDS: DICYCLOMINE 10MG CAPSULE 20 MG PO (19:18)
[2024-07-11] MEDS: CEFTRIAXONE SODIUM IV (19:48)
[2024-07-11] MEDS: SODIUM CHLORIDE 0.9% IV (19:48)
[2024-07-11] MEDS: METRONIDAZ/SOD CHL 500 MG/100 ML PIGGYBACK 100 MG IV (19:48)
[2024-07-11] MEDS: HYDROMORPHONE 2MG/ML SYRINGE 0.5 MG IV (19:49)
--- NOTE | 2024-07-11 20:11 | PC.NURSE ---
report given to Kristine ANDRES on the floor made aware of the need for blood cultures.
[2024-07-11 20:50] VITALS: BP 127/71; PULSE 52; RESP 18; TEMP 36.8; O2SAT 98
[2024-07-11 20:52] VITALS: BP 127/71; PULSE 58; RESP 14; TEMP 36.6; O2SAT 99; BMI 26.5
--- NOTE | 2024-07-11 21:01 | PC.NURSE ---
Patient arrived to floor via wheelchair from ED at 20:46.
[2024-07-11] MEDS: 0.9 % SODIUM CHLORIDE 1000ML 1,000 ML 100 ML IV (21:18)
--- NOTE | 2024-07-11 21:53 | P.HP_ITS ---
<Statement entered by Miguel Patino MD - 07/12/24 09:38> Rounded on patient after nurse practitioner. Personally examined and interviewed patient. Agree with exam findings and care plan as documented. History of Present Illness *Admission Date: 07/11/24 *Reason for visit:: Abdominal pain *History of present illness: This is a 54-year-old female with a past medical history of GERD, fibromyalgia who presents to the emergency department today with complaints of severe epigastric pain and right lower quadrant pain over the last 2 days. She reports anorexia and poor p.o. intake as well as mild nausea. Denies vomiting. Denies any change in bowel habits. She does have pain she reports radiating to the left shoulder region. Denies any melena, bright red blood per rectum or any change in bowel habits. Denies any dysuria. Emergency Department workup notable for acute diverticulitis in the proximal transverse colon without evidence of perforation or abscess. Dilated extrahepatic bile ducts with common bile duct measuring 9.5 mm. Labs stable. LFTs and bilirubin normal. Afebrile. Urinalysis with +4 bacteria but also notable for 20-50 squamous cells. Given her diverticulitis, blood cultures obtained and broad-spectrum antibiotics initiated. She is admitted to hospital service at this time. [facility] Disclaimer: The information contained in this section may have been updated after the patient was seen, as this information can be updated by other users. Medical History Menopausal symptoms Fibromyalgia Depression Surgical History Hx of right knee surgery H/O arthroscopy of hip H/O tubal ligation H/O total hysterectomy Family History Grandmother Cancer Mother Cancer Social History Smoking Status: Never smoker alcohol intake: never substance use type: denies use current occupational status: employed Travel in the last 8 weeks?: None household members: family housing: house Have you lived/traveled outside US in past 30 days?: No Contact w/someone who lives/traveled outside US past 30 days?: No Exposure to someone with infectious disease in past 14 days?: No Do you have a fever (greater than 100.4 F or 38 C)?: No Have you tested positive for COVID-19?: No Exposed to someone with COVID-19 in past 14 days?: No Do you have a sore throat?: No Do you have a cough?: No Do you have any weakness?: No Do you have any diarrhea?: No Are you experiencing any unusual bleeding?: No Do you have any muscle aches/pain?: No Do you have any abdominal pain?: No Are you experiencing loss of taste or smell?: No Other Medical History Have you received the Flu Vaccine for this season: No Have you received the Pneumonia Vaccine: No Review of Systems Review of Systems Review of systems:: pertinent systems reviewed and negative unless documented below Review of systems (narrative): Negative except for HPI Meds Home Medications and Allergies Home Medications ?Medication ?Instructions ?Recorded ?Confirmed ?Type esomeprazole magnesium 20 mg 20 mg PO DAILY 08/19/22 07/11/24 History capsule,delayed release (Nexium) cyclobenzaprine 5 mg tablet 5 mg PO TID PRN muscle spasm #30 06/05/24 07/11/24 Rx tabs valacyclovir 1 gram tablet 1,000 mg PO BID #60 tabs 06/05/24 07/11/24 Rx (Valtrex) fluconazole 150 mg tablet 150 mg PO Q3D 2 doses #2 tabs 06/15/24 07/11/24 Rx estradiol 1 mg tablet 1 mg PO DAILY #90 tabs 07/03/24 07/11/24 Rx New Prescriptions to Start Prescriptions: Allergies Allergy/AdvReac Type Severity Reaction Status Date / Time Opioids - Morphine Analogues AdvReac Mild vomiting Verified 07/11/24 15:56 Exam Data for Last 24 hours Vital signs and Labs for Last 24 Hours: Temp Pulse Resp BP Pulse Ox O2 Del Method 97.8 F 58 L 14 127/71 99 Room Air 07/11/24 20:52 07/11/24 20:52 07/11/24 20:52 07/11/24 20:52 07/11/24 20:52 07/11/24 20:52 Laboratory Results - last 24 hr 07/11/24 16:57: WBC 8.0, RBC 4.35, Hgb 13.2, Hct 39.9, MCV 91.7, MCH 30.3, MCHC 33.1, RDW 13.2, Plt Count 249, MPV 11.0 H, Neut % (Auto) 58.4, Lymph % (Auto) 29.0, [place] % (Auto) 7.8, Eos % (Auto) 4.0, Baso % (Auto) 0.5, Neut # (Auto) 4.7, Lymph # (Auto) 2.3, [place] # (Auto) 0.6, Eos # (Auto) 0.3, Baso # (Auto) 0.0, Sodium 137, Potassium 3.6, Chloride 105, Carbon Dioxide 26, Anion Gap 9.6, BUN 11, Creatinine 0.70, Estimated Creat Clear 108, Estimated GFR 87, Est GFR ( Amer) 106, Glucose 114 H, Calcium 9.2, Total Bilirubin 0.7, AST 30, ALT 26, Alkaline Phosphatase 76, Troponin I < 0.01, Total Protein 7.0, Albumin 4.4, Globulin 2.6, Albumin/Globulin Ratio 1.7, Lipase 84, Urine Color Yellow, Urine Appearance Cloudy, Urine pH 6.0, Ur Specific [place] >= 1.030, Urine Protein Negative, Urine Glucose (UA) Negative, Urine Ketones 2+, Urine Blood Trace-i, Urine Nitrate Negative, Urine Bilirubin Negative, Urine Urobilinogen 0.2, Ur Leukocyte Esterase Negative, Urine RBC 3-5, Urine WBC 3-5, Ur Squamous Epith Cells 20-50, Urine Bacteria 4+, Urine Mucus 4+ I & O for Last 24 hours: Intake & Output 07/08/24 07/09/24 07/10/24 07/11/24 23:59 23:59 23:59 23:59 Output Total 0 / 0 Balance 0 / 0 Weight 74.979 kg Constitutional Constitutional: no acute distress *Routine HEENT Exam Head: Present normocephalic Eye: Present EOMI and PERRL ENT: Present mucous membranes moist *Routine Neck Exam Neck: Present supple; Absent lymphadenopathy *Routine Respiratory Exam Respiratory: Present CTA bilaterally *Routine Cardiovascular Exam Cardiovascular: Present RRR *Routine Abdominal Exam Abdominal: Present soft, tenderness (Generalized TTP), distended (But compressible) and guarding; Absent normoactive bowel sounds *Routine Rectal Exam Rectal:: deferred *Routine Genitalia Exam Genitalia:: deferred *Routine Extremities Exam Extremities: Absent cyanosis, clubbing or edema *Routine Skin Exam Skin: Present warm; Absent rash *Routine Neurological Exam Neurological: Present alert and oriented X3 Assessment and Plan *Assessment and plan (1) Intractable abdominal pain: Status: Acute Category: Medical Code(s): R10.9 - Unspecified abdominal pain (2) Diverticulitis large intestine: Status: Acute Category: Medical Code(s): K57.32 - Diverticulitis of large intestine without perforation or abscess without bleeding (3) Epigastric abdominal pain: Status: Acute Category: Medical Code(s): R10.13 - Epigastric pain Plan #Diverticulitis #Abdominal pain CT with evidence of diverticulitis of the transverse colon. Significant bloating noted with distention but soft and compressible, nonperitonitic Continue clear liquid diet as tolerated Continue antibiotics namely ceftriaxone and Flagyl Antiemetics and narcotics as needed Serial abdominal exams. Lactic acid pending. #Pain management with parenteral controlled substances multimodal pain medication
[2024-07-11 22:55] LABS: Troponin I < 0.01 ng/ml (0.00-0.034)
[2024-07-12] VITALS: BP 104/54; PULSE 55; RESP 18; TEMP 36.3; O2SAT 98
[2024-07-12 02:25] LABS: Troponin I < 0.01 ng/ml (0.00-0.034)
[2024-07-12 04:00] VITALS: BP 104/63; PULSE 61; RESP 14; TEMP 36.8; O2SAT 97; BMI 28.5
[2024-07-12] MEDS: ACETAMINOPHEN 325MG TAB 650 MG PO ×2 (05:41→19:15)
--- NOTE | 2024-07-12 06:26 | PC.NURSE ---
Pt has rested well this shift. Pt has tolerated fluids well. Pt did c/o ALBERT and was treated per APR. Pt denies needs when asked. Pt has had no other acute changes to note this shift
[2024-07-12 06:41] LABS: Basophils % 0.7 % (0.1-2.0); Eosinophils # 0.3 Kmm3 (0.0-0.4); Eosinophils % 4.9 % (0.1-12.0); Hematocrit 34.4 % (37.0-47.0); Immature Granulocytes # 0.01 10^3uL; Immature Granulocytes % 0.2 %; Lymphocytes # 1.8 K/mm3 (0.7-4.5); Lymphocytes % 32.2 % (10-50); Mean Corpuscular HGB Conc 33.4 g/dL (31.8-35.4); Mean Corpuscular Volume 92.7 fl (81-99); Mean Platelet Volume 11.7 fl (7.4-10.4); Monocytes # 0.6 K/mm3 (0.1-1.0); Monocytes % 10.8 % (1.7-9.3); Neutrophils # 2.9 K/mm3 (1.8-7.8); Neutrophils % 51.2 % (37.0-80.0); Nucleated Red Blood Cells # 0 10^3/uL; Nucleated Red Blood Cells % 0 %; Platelet Count 209 K/mm3 (142-424); Red Blood Count 3.71 M/mm3 (4.20-5.40); Red Cell Distribution Width 13.2 % (11.5-17.5); Red Cell Distribution Width-SD 44.3 fL; White Blood Count 5.6 K/mm3 (4.8-10.8)
[2024-07-12 06:55] LABS: Anion Gap 7.9 mEq/L (5-15); Blood Urea Nitrogen 12 mg/dl (7-17); Calcium 8.3 mg/dl (8.4-10.2); Carbon Dioxide 25 mmol/L (22.0-30.0); Chloride 108 mmol/L (98-107); Creatinine Clearance Estimated 117 mL/min (50-200); Estimated Glomerular Filt Rate 87 ml/min (>60); GFR (African American) 106 ML/MIN (>60); Glucose 86 mg/dl (74-100); Magnesium 2.2 mg/dl (1.6-2.3); Potassium 3.9 mmoL/L (3.5-5.1); Sodium 137 mmol/L (136-145)
[2024-07-12 07:09] LABS: Hemoglobin 11.5 g/dL (12.2-16.2)
[2024-07-12 08:00] VITALS: BP 97/56; PULSE 63; RESP 16; TEMP 36.6; O2SAT 94
--- NOTE | 2024-07-12 08:00 | US_ITS ---
FINAL REPORT TECHNIQUE: Sonographic images of the abdomen were obtained in all four quadrants. CLINICAL HISTORY: Dilated CBD seen on ct // abd pain COMPARISON: CT 07/11/2024 FINDINGS: LIVER: Homogeneous. No focal hepatic lesion or intrahepatic biliary dilatation. GALLBLADDER: Gallstones. No pericholecystic fluid collection or gallbladder wall thickening. The common duct is dilated measuring 13 mm. No stones identified within the duct. PANCREAS: Unremarkable. RIGHT KIDNEY: 11.6 cm. No hydronephrosis, mass or stone. LEFT KIDNEY: 12.5 cm. No hydronephrosis, mass or stone. SPLEEN: Borderline enlarged at 13.1 cm. No focal splenic lesion. AORTA/IVC: No abdominal aortic aneurysm. Visualized IVC within normal limits. OTHER: No ascites. IMPRESSION: Gallstones. Common duct dilated with no stones visible on exam. Consider MRCP if indicated. Reviewed, Interpreted and Dictated by Vanessa Covarrubias MD Transcribed by Bijal Jarquin Authenticated and [facility][1]
[2024-07-12 08:11] LABS: Alanine Aminotransferase 18 U/L (12-78); Albumin Level 3.3 g/dl (3.5-5.0); Alkaline Phosphatase 64 U/L (38-126); Aspartate Amino Transferase 23 U/L (14-36); Bilirubin,Direct 0.2 mg/dl (0.0-0.4); Bilirubin,Indirect 0.3 mg/dL (0.0-0.9); Bilirubin,Total 0.5 mg/dl (0.2-1.3); Bilirubin,Unconjugated 0.3 mg/dL (0.0-1.1); Total Protein,Serum 5.5 g/dl (6.3-8.2)
[2024-07-12] MEDS: METRONIDAZ/SOD CHL 500 MG/100 ML PIGGYBACK 100 MG IV ×2 (08:23→19:50)
[2024-07-12] MEDS: 0.9 % SODIUM CHLORIDE 1000ML 1,000 ML 100 ML IV (08:23)
[2024-07-12] MEDS: HYDROMORPHONE 2MG/ML SYRINGE 0.5 MG IV ×2 (09:48→13:24)
[2024-07-12 12:00] VITALS: BP 114/65; PULSE 56; RESP 17; TEMP 36.6; O2SAT 98
[2024-07-12] MEDS: ONDANSETRON 4MG/2ML VIAL 4 MG IV (15:10)
[2024-07-12 16:00] VITALS: BP 118/70; PULSE 56; RESP 18; TEMP 36.8; O2SAT 98
--- NOTE | 2024-07-12 18:19 | PC.NURSE ---
Pt has rested well this shift. Pt has tolerated diet well. Pt did c/o abd pain and nausea and was treated per APR. tolerating ra with sats >90%. ambulates independently in the room. no needs at this time. call light within reach.
--- NOTE | 2024-07-12 19:31 | P.PN_ITS ---
Subjective *Date: 07/12/24 *Time: 21:09 Interval history: Afebrile. Stable on room air. Continues to have right upper quadrant/right sided pain. Passing gas. Mild nausea but no emesis. Medical Exam Vital signs and Labs for Last 24 Hours: Vital Signs Temp Pulse Pulse Resp BP BP Pulse Ox 07/12/24 18:39 07/12/24 17:00 07/12/24 16:00 98.2 F 56 L 18 118/70 98 07/12/24 15:00 07/12/24 13:00 07/12/24 12:00 97.9 F 56 L 17 114/65 98 07/12/24 11:00 07/12/24 09:00 07/12/24 08:00 07/12/24 08:00 97.9 F 63 16 97/56 L 94 L 07/12/24 07:00 07/12/24 05:00 07/12/24 04:00 98.2 F 61 14 104/63 L 97 07/12/24 03:00 07/12/24 01:00 07/12/24 00:00 97.4 F L 55 L 18 104/54 L 98 07/11/24 23:00 07/11/24 21:00 07/11/24 20:52 97.8 F 58 L 14 127/71 99 07/11/24 20:50 98.3 F 52 L 18 127/71 07/11/24 19:51 O2 Del Method 07/12/24 18:39 Room Air 07/12/24 17:00 Room Air 07/12/24 16:00 Room Air 07/12/24 15:00 Room Air 07/12/24 13:00 Room Air 07/12/24 12:00 07/12/24 11:00 Room Air 07/12/24 09:00 Room Air 07/12/24 08:00 Room Air 07/12/24 08:00 07/12/24 07:00 Room Air 07/12/24 05:00 Room Air 07/12/24 04:00 Room Air 07/12/24 03:00 Room Air 07/12/24 01:00 Room Air 07/12/24 00:00 Room Air 07/11/24 23:00 Room Air 07/11/24 21:00 Room Air 07/11/24 20:52 Room Air 07/11/24 20:50 Room Air 07/11/24 19:51 Room Air Intake and Output 07/12/24 07/12/24 07/12/24 07:59 15:59 23:59 Intake Total 360 / 700 340 / 700 Output Total 0 / 0 0 / 0 0 / 0 Balance 360 / 700 0 / 700 340 / 700 Intake: Intake, Oral Amount 360 / 700 340 / 700 Output: Output, Urine Amount 0 / 0 0 / 0 0 / 0 Other: Number of Unmeasured Voids 1 0 0 Weight 80.422 kg Patient Weight 07/12/24 23:59 Weight 80.422 kg Laboratory Results - last 24 hr 07/11/24 21:41: Lactate 1.0, Troponin I < 0.01 07/12/24 01:37: Troponin I < 0.01 07/12/24 05:18: WBC 5.6 D, RBC 3.71 L, Hgb 11.5 L D, Hct 34.4 L, MCV 92.7, MCH 31.0, MCHC 33.4, RDW 13.2, Plt Count 209, MPV 11.7 H, Neut % (Auto) 51.2, Lymph % (Auto) 32.2, [place] % (Auto) 10.8 H, Eos % (Auto) 4.9, Baso % (Auto) 0.7, Neut # (Auto) 2.9, Lymph # (Auto) 1.8, [place] # (Auto) 0.6, Eos # (Auto) 0.3, Baso # (Auto) 0.0, Sodium 137, Potassium 3.9, Chloride 108 H, Carbon Dioxide 25, Anion Gap 7.9, BUN 12, Creatinine 0.70, Estimated Creat Clear 117, Estimated GFR 87, Est GFR ( Amer) 106, Glucose 86 D, Calcium 8.3 L, Magnesium 2.2, Total Bilirubin 0.5, Direct Bilirubin 0.2, Conjugated Bilirubin 0.0, Indirect Bilirubin 0.3, Unconjugated Bilirubin 0.3, AST 23, ALT 18 D, Alkaline Phosphatase 64, Total Protein 5.5 L, Albumin 3.3 L D I & O for Labs for Last 24 Hours: Intake & Output 07/09/24 07/10/24 07/11/24 07/12/24 23:59 23:59 23:59 23:59 Intake Total 700 / 700 Output Total 0 / 0 0 / 0 Balance 0 / 360 700 / 700 Weight 74.979 kg 80.422 kg Constitutional: Present mild distress, average body habitus and cooperative Head: Present atraumatic and normocephalic ENT: Present normal exam Respiratory: Present normal respiratory effort; Absent rhonchi, wheezes or crackles Cardiac: Present Reg Rate and Rhythm GI: Present soft, tenderness (Right upper quadrant and right sided hemidiaphragm) and normal bowel sounds; Absent distention Extremities: Present normal inspection and full ROM Skin: Present intact; Absent erythema Neuro: Present Grossly Intact, alert, awake, oriented x 3 and moves all extremities Assessment and Plan *Assessment and plan (1) Intractable abdominal pain: Status: Acute Category: Medical Code(s): R10.9 - Unspecified abdominal pain (2) Diverticulitis large intestine: Status: Acute Category: Medical Code(s): K57.32 - Diverticulitis of large intestine without perforation or abscess without bleeding (3) Epigastric abdominal pain: Status: Acute Category: Medical Code(s): R10.13 - Epigastric pain (4) Common bile duct dilation: Status: Acute Category: Medical Code(s): K83.8 - Other specified diseases of biliary tract Plan 54-year-old female presented with abdominal pain. Found to have proximal transverse colon diverticulitis. Continue antibiotics. Slowly advance diet. Continues to require patient management. Anticipate discharge in the next day or 2. Problems addressed as follows: #Diverticulitis #Abdominal pain CT with evidence of diverticulitis of the transverse colon. Right upper quadrant ultrasound obtained today, per my review has common bile duct of approximately 12 to 13 mm. Patient's liver enzymes are normal with normal bilirubin less than 1 and AST, ALT in the 20s and 30s Advance to full liquid diet Continue antibiotics with ceftriaxone IV daily and Flagyl 500 mg every 8 hours - Zofran as needed for nausea every 6 hours - Continue Dilaudid 0.5 mg every 3 hours IV for severe breakthrough pain. Monitor for toxicity Continue pantoprazole 40 mg daily - Regarding common bile duct, will refer as outpatient to GI for further management. - White count 5.6, hemoglobin 11.5. Kidney function normal with BUN 12, creatinine 0.7. Serial labs ordered for the morning to monitor liver function and kidney function along with white count with CBC, CMP, magnesium ordered for the morning. Full code Advance diet as tolerated
[2024-07-12] MEDS: PANTOPRAZOLE 40MG VIAL 40 MG IV (19:51)
[2024-07-12 19:57] VITALS: BP 112/59; PULSE 57; RESP 13; TEMP 36.8; O2SAT 95
[2024-07-12] MEDS: CEFTRIAXONE SODIUM 2 GM in 0.9 % SODIUM CHLORIDE 100 ML IV (20:55)
[2024-07-13] VITALS: BP 112/62; PULSE 62; RESP 17; TEMP 36.9; O2SAT 97
[2024-07-13 03:57] VITALS: BP 112/67; PULSE 58; RESP 16; TEMP 36.9; O2SAT 97
--- NOTE | 2024-07-13 03:58 | PC.NURSE ---
Pt AOx4. Continually denying pain or any additional needs this shift. Denies nausea. Pt independent. Currently resting in bed with eyes closed. Respirations even and unlabored. Bed low, locked, and call light in reach.
[2024-07-13 03:59] VITALS: BMI 29.5
[2024-07-13 07:01] LABS: Basophils % 0.6 % (0.1-2.0); Eosinophils # 0.3 Kmm3 (0.0-0.4); Eosinophils % 5.7 % (0.1-12.0); Hematocrit 38.7 % (37.0-47.0); Hemoglobin 12.7 g/dL (12.2-16.2); Immature Granulocytes # 0.01 10^3uL; Immature Granulocytes % 0.2 %; Lymphocytes # 1.9 K/mm3 (0.7-4.5); Lymphocytes % 35.8 % (10-50); Mean Corpuscular HGB Conc 32.8 g/dL (31.8-35.4); Mean Corpuscular Hemoglobin 30.6 pg (27.0-31.2); Mean Corpuscular Volume 93.3 fl (81-99); Mean Platelet Volume 11.1 fl (7.4-10.4); Monocytes # 0.5 K/mm3 (0.1-1.0); Monocytes % 9.8 % (1.7-9.3); Neutrophils # 2.5 K/mm3 (1.8-7.8); Neutrophils % 47.9 % (37.0-80.0); Nucleated Red Blood Cells # 0 10^3/uL; Nucleated Red Blood Cells % 0 %; Platelet Count 237 K/mm3 (142-424); Red Blood Count 4.15 M/mm3 (4.20-5.40); Red Cell Distribution Width 13.2 % (11.5-17.5); Red Cell Distribution Width-SD 45.1 fL; White Blood Count 5.2 K/mm3 (4.8-10.8)
[2024-07-13 07:13] LABS: Alanine Aminotransferase 22 U/L (12-78); Albumin Level 3.7 g/dl (3.5-5.0); Albumin/Globulin Ratio 1.4 (1.1-1.8); Alkaline Phosphatase 68 U/L (38-126); Aspartate Amino Transferase 26 U/L (14-36); Bilirubin,Total 0.4 mg/dl (0.2-1.3); Blood Urea Nitrogen 6 mg/dl (7-17); Calcium 8.6 mg/dl (8.4-10.2); Carbon Dioxide 25 mmol/L (22.0-30.0); Chloride 110 mmol/L (98-107); Creatinine Clearance Estimated 121 mL/min (50-200); Estimated Glomerular Filt Rate 87 ml/min (>60); GFR (African American) 106 ML/MIN (>60); Globulin 2.6 g/dL (1.3-3.2); Glucose 96 mg/dl (74-100); Magnesium 2.3 mg/dl (1.6-2.3); Sodium 140 mmol/L (136-145); Total Protein,Serum 6.3 g/dl (6.3-8.2)
[2024-07-13 08:00] VITALS: BP 123/68; PULSE 55; RESP 16; TEMP 36.8; O2SAT 99
[2024-07-13] MEDS: METRONIDAZ/SOD CHL 500 MG/100 ML PIGGYBACK 100 MG IV (08:25)
--- NOTE | 2024-07-13 09:58 | EXP.DC.SUM ---
General Admission date:: 07/11/24 Discharge date: 07/13/24 HPI HPI HPI: This is a 54-year-old female with a past medical history of GERD, fibromyalgia who presents to the emergency department today with complaints of severe epigastric pain and right lower quadrant pain over the last 2 days. She reports anorexia and poor p.o. intake as well as mild nausea. Denies vomiting. Denies any change in bowel habits. She does have pain she reports radiating to the left shoulder region. Denies any melena, bright red blood per rectum or any change in bowel habits. Denies any dysuria. Emergency Department workup notable for acute diverticulitis in the proximal transverse colon without evidence of perforation or abscess. Dilated extrahepatic bile ducts with common bile duct measuring 9.5 mm. Labs stable. LFTs and bilirubin normal. Afebrile. Urinalysis with +4 bacteria but also notable for 20-50 squamous cells. Given her diverticulitis, blood cultures obtained and broad-spectrum antibiotics initiated. She is admitted to hospital service at this time. Hospital Course Hospital Course Hospital Course: 54-year-old female presented with abdominal pain. Found to have proximal transverse colon diverticulitis. Managed with IV antibiotics. Advance diet. Pain doing better. Stable to discharge home with outpatient follow-up. Problems addressed as follows: #Diverticulitis #Abdominal pain CT with evidence of diverticulitis of the transverse colon. Right upper quadrant ultrasound obtained 07/12/2024, per my review has common bile duct of approximately 12 to 13 mm. Patient's liver enzymes are normal with normal bilirubin less than 1 and AST, ALT in the 20s and 30s. Advanced to full liquid diet. Initially treated with ceftriaxone and Flagyl. Will transition to Augmentin 875/125 to complete 10 days total of antibiotics. Nausea resolved. Patient declined any pain medication. Recommend Tylenol or ibuprofen for pain at home. Resume home medications including esomeprazole. White count normal at 5.2 on day of discharge. Kidney function normal with BUN 6, creatinine 0.7. LFTs remain normal on day of discharge with bilirubin 0.4, AST 26, ALT 22, alk phos 68. - Regarding common bile duct, referred as outpatient to GI for further management. Tolerated advancement of diet. Total time spent on discharge 32 minutes in counseling, documentation, chart review, and direct care with patient. Exam Data for Last 24 hours Vital signs and Labs for Last 24 Hours: Temp Pulse Resp BP Pulse Ox O2 Del Method 98.2 F 61 14 104/63 L 97 Room Air 07/12/24 04:00 07/12/24 04:00 07/12/24 04:00 07/12/24 04:00 07/12/24 04:00 07/12/24 07:00 Laboratory Results - last 24 hr 07/11/24 16:57: WBC 8.0, RBC 4.35, Hgb 13.2, Hct 39.9, MCV 91.7, MCH 30.3, MCHC 33.1, RDW 13.2, Plt Count 249, MPV 11.0 H, Neut % (Auto) 58.4, Lymph % (Auto) 29.0, [place] % (Auto) 7.8, Eos % (Auto) 4.0, Baso % (Auto) 0.5, Neut # (Auto) 4.7, Lymph # (Auto) 2.3, [place] # (Auto) 0.6, Eos # (Auto) 0.3, Baso # (Auto) 0.0, Sodium 137, Potassium 3.6, Chloride 105, Carbon Dioxide 26, Anion Gap 9.6, BUN 11, Creatinine 0.70, Estimated Creat Clear 108, Estimated GFR 87, Est GFR ( Amer) 106, Glucose 114 H, Calcium 9.2, Total Bilirubin 0.7, AST 30, ALT 26, Alkaline Phosphatase 76, Troponin I < 0.01, Total Protein 7.0, Albumin 4.4, Globulin 2.6, Albumin/Globulin Ratio 1.7, Lipase 84, Urine Color Yellow, Urine Appearance Cloudy, Urine pH 6.0, Ur Specific [place] >= 1.030, Urine Protein Negative, Urine Glucose (UA) Negative, Urine Ketones 2+, Urine Blood Trace-i, Urine Nitrate Negative, Urine Bilirubin Negative, Urine Urobilinogen 0.2, Ur Leukocyte Esterase Negative, Urine RBC 3-5, Urine WBC 3-5, Ur Squamous Epith Cells 20-50, Urine Bacteria 4+, Urine Mucus 4+ 07/11/24 21:41: Lactate 1.0, Troponin I < 0.01 07/12/24 01:37: Troponin I < 0.01 07/12/24 05:18: WBC 5.6 D, RBC 3.71 L, Hgb 11.5 L D, Hct 34.4 L, MCV 92.7, MCH 31.0, MCHC 33.4, RDW 13.2, Plt Count 209, MPV 11.7 H, Neut % (Auto) 51.2, Lymph % (Auto) 32.2, [place] % (Auto) 10.8 H, Eos % (Auto) 4.9, Baso % (Auto) 0.7, Neut # (Auto) 2.9, Lymph # (Auto) 1.8, [place] # (Auto) 0.6, Eos # (Auto) 0.3, Baso # (Auto) 0.0, Sodium 137, Potassium 3.9, Chloride 108 H, Carbon Dioxide 25, Anion Gap 7.9, BUN 12, Creatinine 0.70, Estimated Creat Clear 117, Estimated GFR 87, Est GFR ( Amer) 106, Glucose 86 D, Calcium 8.3 L, Magnesium 2.2 I & O for Last 24 hours: Intake & Output 07/09/24 07/10/24 07/11/24 07/12/24 23:59 23:59 23:59 23:59 Intake Total 360 / 360 Output Total 0 / 0 0 / 0 Balance 0 / 360 360 / 360 Weight 74.979 kg 80.422 kg Constitutional Constitutional: no acute distress *Routine HEENT Exam Head: Present normocephalic Eye: Present EOMI and PERRL ENT: Present mucous membranes moist *Routine Neck Exam Neck: Present supple; Absent lymphadenopathy *Routine Respiratory Exam Respiratory: Present CTA bilaterally *Routine Cardiovascular Exam Cardiovascular: Present RRR *Routine Abdominal Exam Abdominal: Present soft, normoactive bowel sounds and tenderness (Improved, right upper quadrant); Absent distended *Routine Rectal Exam Patient deferred: visual exam *Routine Exam Patient deferred: external exam *Routine Extremities Exam Extremities: Absent cyanosis, clubbing or edema *Routine Skin Exam Skin: Present warm; Absent rash *Routine Neurological Exam Neurological: Present alert and oriented X3 Results Data Completed and Pending Labs on day of discharge: Labs from last 24 hours 07/12/24 07/12/24 07/11/24 05:18 01:37 21:41 WBC 5.6 D RBC 3.71 L Hgb 11.5 L D Hct 34.4 L MCV 92.7 MCH 31.0 MCHC 33.4 RDW 13.2 Plt Count 209 MPV 11.7 H Neut % (Auto) 51.2 Lymph % (Auto) 32.2 [place] % (Auto) 10.8 H Eos % (Auto) 4.9 Baso % (Auto) 0.7 Neut # (Auto) 2.9 Lymph # (Auto) 1.8 [place] # (Auto) 0.6 Eos # (Auto) 0.3 Baso # (Auto) 0.0 Sodium 137 Potassium 3.9 Chloride 108 H Carbon Dioxide 25 Anion Gap 7.9 BUN 12 Creatinine 0.70 Estimated Creat Clear 117 Estimated GFR 87 Est GFR ( Amer) 106 Glucose 86 D Lactate 1.0 Calcium 8.3 L Magnesium 2.2 Total Bilirubin AST ALT Alkaline Phosphatase Troponin I < 0.01 < 0.01 Total Protein Albumin Globulin Albumin/Globulin Ratio Lipase Urine Color Urine Appearance Urine pH Ur Specific [place] Urine Protein Urine Glucose (UA) Urine Ketones Urine Blood Urine Nitrate Urine Bilirubin Urine Urobilinogen Ur Leukocyte Esterase Urine RBC Urine WBC Ur Squamous Epith Cells Urine Bacteria Urine Mucus 07/11/24 16:57 WBC 8.0 RBC 4.35 Hgb 13.2 Hct 39.9 MCV 91.7 MCH 30.3 MCHC 33.1 RDW 13.2 Plt Count 249 MPV 11.0 H Neut % (Auto) 58.4 Lymph % (Auto) 29.0 [place] % (Auto) 7.8 Eos % (Auto) 4.0 Baso % (Auto) 0.5 Neut # (Auto) 4.7 Lymph # (Auto) 2.3 [place] # (Auto) 0.6 Eos # (Auto) 0.3 Baso # (Auto) 0.0 Sodium 137 Potassium 3.6 Chloride 105 Carbon Dioxide 26 Anion Gap 9.6 BUN 11 Creatinine 0.70 Estimated Creat Clear 108 Estimated GFR 87 Est GFR ( Amer) 106 Glucose 114 H Lactate Calcium 9.2 Magnesium Total Bilirubin 0.7 AST 30 ALT 26 Alkaline Phosphatase 76 Troponin I < 0.01 Total Protein 7.0 Albumin 4.4 Globulin 2.6 Albumin/Globulin Ratio 1.7 Lipase 84 Urine Color Yellow Urine Appearance Cloudy Urine pH 6.0 Ur Specific [place] >= 1.030 Urine Protein Negative Urine Glucose (UA) Negative Urine Ketones 2+ Urine Blood Trace-i Urine Nitrate Negative Urine Bilirubin Negative Urine Urobilinogen 0.2 Ur Leukocyte Esterase Negative Urine RBC 3-5 Urine WBC 3-5 Ur Squamous Epith Cells 20-50 Urine Bacteria 4+ Urine Mucus 4+ DS: Diagnosis Discharge Diagnosis (1) Intractable abdominal pain: Status: Acute Code(s): R10.9 - Unspecified abdominal pain (2) Diverticulitis large intestine: Status: Acute Code(s): K57.32 - Diverticulitis of large intestine without perforation or abscess without bleeding (3) Epigastric abdominal pain: Status: Acute Code(s): R10.13 - Epigastric pain Meds Home Medications and Allergies Home Medications ?Medication ?Instructions ?Recorded ?Confirmed ?Type esomeprazole magnesium 20 mg 20 mg PO DAILY 08/19/22 07/11/24 History capsule,delayed release (Nexium) valacyclovir 1 gram tablet 1,000 mg PO BID #60 tabs 06/05/24 07/11/24 Rx (Valtrex) estradiol 1 mg tablet 1 mg PO DAILY #90 tabs 07/03/24 07/11/24 Rx amoxicillin 875 mg-potassium 1 tab PO Q8H 10 days #30 tabs 07/13/24 Rx clavulanate 125 mg tablet New Prescriptions to Start Prescriptions: amoxicillin-pot clavulanate Miguel Patino Allergies Allergy/AdvReac Type Severity Reaction Status Date / Time Opioids - Morphine Analogues AdvReac Mild vomiting Verified 07/11/24 15:56 Discharge Plan Disposition Patient Disposition: Home, Self-Care Condition: Good Follow up Plan Follow up with: Michael Romero MD [Primary Care Provider] - Enter time for follow up (please call for appointment) Sha Martinez II, MD [Staff Physician] - Enter time for follow up (please call for appointment) Prescriptions/Medication Reconciliation: New amoxicillin-pot clavulanate 875-125 mg tablet 1 tab PO Q8H 10 Days Qty: 30 0RF Continued esomeprazole magnesium [Nexium] 20 mg capsule,delayed release(DR/EC) 20 mg PO DAILY valacyclovir [Valtrex] 1 gram tablet 1,000 mg PO BID Qty: 60 3RF estradiol 1 mg tablet 1 mg PO DAILY Qty: 90 1RF Problem Reconciliation Problems Reviewed?: Yes Patient Discharge Instructions ACTIVITY: Continue current activity DIET: continue same diet and advance to your usual diet Patient Instructions: DI for Diverticulitis, DI for Abdominal Pain-Adult, Low-Fiber/Low-Residue Diet Print Language: Kitt[place] Providers Primary Care Provider: Michael Romero Admit Provider: Miguel Patino Attending Provider: Miguel Patino
== END 2024-07-13 10:26 | disposition home or self-care (01) ==
LOC: ER 19:40 → 2ND 20:40
PROVIDERS: Nurse Practitioner Acute Care; Admitting Provider Internal Medicine Adolescent Medicine; Emergency Provider Emergency Medicine; PCP Internal Medicine; Visit Provider Internal Medicine Adolescent Medicine
DX: F50.89 Other specified eating disorder; Z68.29 Body mass index [BMI] 29.0-29.9, adult; M79.7 Fibromyalgia; K21.9 Gastro-esophageal reflux disease without esophagitis; Z90.79 Acquired absence of other genital organ(s); Z80.9 Family history of malignant neoplasm, unspecified; Z79.899 Other long term (current) drug therapy; Z79.818 Long term (current) use of other agents affecting estrogen receptors and estrogen levels; Z88.5 Allergy status to narcotic agent
CPT/HCPCS: 36415; 74177; 76700; 80048; 80053; 80076; 81001; 83605; 83690; 83735; 84484; 85025; 87040; 87086; 93005; 99285; G0378; J0131; J0696; J1171; J1885; J2270; J2405; J2470; J7030; J7120; Q9967

== ENCOUNTER 2024-12-30 14:13 | Outpatient (CLI) | payer OTHER, SELFPAY ==
--- OUTSIDE RECORDS SUMMARY | 2024-12-30 14:18 | XMS_ITS | Clinical Summary ---
Author Organization Healthcare Address [address] [place] [address] Care Team Providers Care Component Lab Tech Name Role Phone Michael Romero MD Primary Care Provider [phone] Family History Medical History Relation Name Comments COPD Other 1 Other cancer Other 2 Relation Name Status Comments Other 1 Other 2 Social History Tobacco Use Types Packs/Day Years Used Date Smoking Tobacco: Never Alcohol Use Standard Drinks/Week Comments No 0 (1 standard drink = 0.6 oz pur e alcohol) Comments Unknown Sex and Gender Information Value Date Recorded Sex Assigned at Not on file Legal Sex Female 8:41 PM EDT Gender Identity Not on file Sexual Orientation Not on file Last Filed Vital Signs Vital Sign Reading Time Taken Comments Blood Pressure 122/78 07/06/2018 9:04 AM EDT Pulse - - Temperature - - Respiratory Rate - - Oxygen Saturation - - Inhaled Oxygen Concentration - - Weight 75.3 kg (166 lb 0.1 oz) 07/06/2018 9:04 A M EDT Height 167.6 cm (5' 6 ) 07/06/2018 9:04 AM EDT Body Mass Index 26.79 07/06/2018 9:04 AM EDT Plan of Treatment Not on file Care Teams Component Lab Tech Relationship Specialty Start Date End Date Michael Romero MD [address] [facility] [address] [place] [address] PCP - General 07/10/20
[2024-12-30 14:47] LABS: Hematocrit 38.5 % (37.0-47.0); Hemoglobin 13.1 g/dL (12.2-16.2); Immature Granulocytes % 0.3 %; Mean Corpuscular HGB Conc 34.0 g/dL (31.8-35.4); Mean Corpuscular Hemoglobin 31.3 pg (27.0-31.2); Mean Corpuscular Volume 91.9 fl (81-99); Nucleated Red Blood Cells % 0 %; Platelet Count 203 K/mm3 (142-424); Red Blood Count 4.19 M/mm3 (4.20-5.40); Red Cell Distribution Width-SD 43.5 fL; White Blood Count 6.9 K/mm3 (4.8-10.8)
[2024-12-30 15:16] LABS: Alanine Aminotransferase 16 U/L (12-78); Albumin Level 4.1 g/dl (3.5-5.0); Alkaline Phosphatase 71 U/L (38-126); Anion Gap 11.7 mEq/L (5-15); Aspartate Amino Transferase 17 U/L (14-36); Bilirubin,Direct 0.2 mg/dl (0.0-0.4); Bilirubin,Indirect 0.4 mg/dL (0.0-0.9); Bilirubin,Total 0.6 mg/dl (0.2-1.3); Bilirubin,Unconjugated 0.4 mg/dL (0.0-1.1); Blood Urea Nitrogen 9 mg/dl (7-17); Calcium 9.0 mg/dl (8.4-10.2); Carbon Dioxide 25 mmol/L (22.0-30.0); Chloride 103 mmol/L (98-107); Cholesterol 170 mg/dl (140-200); Creatinine,Serum 0.70 mg/dl (0.52-1.04); Estimated Glomerular Filt Rate 87 ml/min (>60); GFR (African American) 106 ML/MIN (>60); Glucose 104 mg/dl (74-100); HDL Cholesterol 50 mg/dl (40-60); Magnesium 1.7 mg/dl (1.6-2.3); Potassium 3.7 mmoL/L (3.5-5.1); Sodium 136 mmol/L (136-145); Total Protein,Serum 6.9 g/dl (6.3-8.2); Triglycerides 149 mg/dl (30-150)
[2024-12-30 15:31] LABS: Free T4 (Free Thyroxine) 0.91 ng/dl (0.78-2.19)
[2024-12-30 15:45] LABS: Thyroid Stimulating Hormone 0.32 uIU/mL (0.465-4.68)
== END 2024-12-30 23:59 | disposition home or self-care (01) ==
LOC: LAB 14:14
PROVIDERS: PCP Internal Medicine; Visit Provider Nurse Practitioner Family
DX: I48.91 Unspecified atrial fibrillation (principal)
CPT/HCPCS: 36415; 80048; 80061; 80076; 83735; 84439; 84443; 85025